=== PATIENT | female | born 1950 | race Caucasian/White ===

== ENCOUNTER 2020-11-20 20:49 | Emergency (ER) | payer MEDICARE, OTHER ==
[~2020-11-20 20:49] MED LIST: BACTRIM DS TAB1 EACH PO; MACROBID100 MG PO; PYRIDIUM200 MG PO
[2020-11-20 22:45] LABS: CORONAVIRUS 2019 SARS-COV-2 NEGATIVE (NEGATIVE); INFLUENZA A NAA NEGATIVE (NEGATIVE)
[2020-11-21] MEDS ORDERED: AZITHROMYCIN250 MG PO (02:37)
[2020-11-21] MEDS ORDERED: PREDNISONE 20MG20 MG PO (02:37)
== END 2020-11-21 02:56 | disposition home or self-care (01) ==
LOC: FER 20:49
PROVIDERS: Emergency Medicine Emergency Medical Services
DX: J04.0 Acute laryngitis (principal); Z20.822 Contact with and (suspected) exposure to COVID-19; Z88.2 Allergy status to sulfonamides; Z88.1 Allergy status to other antibiotic agents; Z88.8 Allergy status to other drugs, medicaments and biological substances
CPT/HCPCS: 87880; 99283; J7512; U0002